=== PATIENT | female | born 1970 | race Caucasian/White ===

== ENCOUNTER → 2017-07-14 08:00 | Outpatient (CLI) | payer OTHER, SELFPAY ==
--- NOTE | 2017-07-14 08:00 | DT_ITS ---
This patient was seen during an EMR downtime July 11, 2017 - July 18, 2017. This patient may have a combination of paper and electronic documentation or all paper documentation. All documentation is viewable within the e-chart portion of [facility] for each patient visit.
== END ==
PROVIDERS: Family Provider Family Medicine; PCP Family Medicine; Visit Provider Family Medicine
DX: R69 Illness, unspecified (principal)
CPT/HCPCS: 84443

== ENCOUNTER → 2021-12-15 | Outpatient (CLI) | payer OTHER, SELFPAY ==
[2021-12-15 16:10] LABS: Absolute Lymphocyte Count 2.75 X10^3/uL (0.83-4.51); Absolute Neutrophil Count 3.6 X10^3/uL (2.0-7.7); Basophil# 0.04 X10^3/uL; Basophil% 0.6 % (0-1); Eosinophil# 0.11 X10^3/uL; Eosinophils% 1.6 % (0-5); Hematocrit 39.5 % (37-47); Lymphocyte # 2.75 X10^3/ul (0.83-4.51); Lymphocyte % 38.8 % (19-41); Mean Corp Hgb Conc 32.9 g/dL (32-36); Mean Corpuscular Volume 94.3 fL (81-99); Mean Platelet Vol. 9.8 fl (6.2-12.0); Monocyte# 0.56 X10^3/uL; Monocyte% 7.9 % (0-10); NRBC Flagged by Analyzer 0 % (0-5); Neutrophil % 50.8 % (47-70); Platelet Count 409 K/mm3 (150-450); RBC Distribution Width CV 12.7 % (11.6-14.6); RBC Distribution Width SD 44.1 fl (35.1-43.9); Red Blood Count 4.19 M/mm3 (4.2-5.4); White Blood Count 7.1 K/mm3 (4.4-11.0)
[2021-12-15 16:21] LABS: Erythrocyte Sedimentation Rate 6 mm/hr (0-30)
[2021-12-15 17:30] LABS: ALB/GLOB Ratio 1.1 RATIO (0.9-2.4); AST(SGOT) 18 U/L (15-37); Alanine Aminotransfer ALT/SGPT 31 U/L (13-56); Albumin, Serum 4.3 g/dL (3.2-5.0); Alkaline Phosphatase 70 U/L (45-117); Anion Gap 7 (5-15); BUN 7 mg/dL (7-18); CRP < 2.90 mg/L (0.0-3.0); Calcium,Total 9.4 mg/dL (8.5-10.1); Chloride 106 mmol/L (98-107); Creatinine, Serum 0.64 mg/dL (0.55-1.02); EST Glomerular Filtration Rate 103 mL/min (>60); Est Glom Filt Rate - Afr Amer 125 mL/min (>60); Globulin 3.8 g/dL (2.2-4.2); Glucose 89 mg/dL (74-106); LDH 173 U/L (84-246); Potassium 3.5 mmol/L (3.5-5.1); Protein, Total 8.1 g/dL (6.4-8.2); Sodium Level 141 mmol/L (136-145)
[2021-12-17 12:08] LABS: Anti-Centromere B Ab <0.2 AI (0.0-0.9); Anti-Chromatin <0.2 AI (0.0-0.9); Anti-Jo <0.2 AI (0.0-0.9); Anti-Scleroderma-70 AB <0.2 AI (0.0-0.9); RNP Ab 0.5 AI (0.0-0.9); SJOGREN'S Anti-SS-A test < 0.2 AI (0.0-0.9); SJOGREN'S Anti-SS-B test < 0.2 AI (0.0-0.9); Smith Ab <0.2 AI (0.0-0.9)
[2021-12-17 16:09] LABS: Endomysial Antibody IgA Negative (Negative)
[2021-12-18 15:07] LABS: Anti-dsDNA Ab <1 IU/mL (0-9)
[2021-12-18 15:10] LABS: Immunoglobulin A 104 mg/dL (87-352); t-Transglutaminase IgA <2 U/mL (0-3)
[2021-12-23 11:09] LABS: Albumin 4.1 g/dL (2.9-4.4); Alpha-1-Globulins 0.3 g/dL (0.0-0.4); Alpha-2-Globulins 0.9 g/dL (0.4-1.0); Cytoplasmic Ab (C-ANCA) <1:20 titer (Neg:<1:20); Gamma Globulin 1.2 g/dL (0.4-1.8); Immunoglobulin A 103 mg/dL (87-352); Immunoglobulin E 18 IU/mL (6-495); Immunoglobulin G 1082 mg/dL (586-1602); Immunoglobulin M 126 mg/dL (26-217); PROEL- TOTAL PROTEIN 7.5 g/dL (6.0-8.5)
[2021-12-23 16:31] LABS: Perinuclear Ab (P-ANCA) <1:20 titer (Neg:<1:20)
== END | disposition home or self-care (01) ==
LOC: LAB 15:01
PROVIDERS: Referring Provider Nurse Practitioner Adult Health; Visit Provider Nurse Practitioner Adult Health
DX: R10.9 Unspecified abdominal pain (principal); R19.7 Diarrhea, unspecified
CPT/HCPCS: 36415; 80053; 82784; 82785; 83516; 83615; 84165; 85025; 85652; 86140; 86225; 86235; 86255; 86256; 86334

== ENCOUNTER → 2021-12-18 | Outpatient (CLI) | payer OTHER, SELFPAY ==
[2021-12-22 13:39] LABS: Calprotectin, Stool <16 ug/g (0-120); Fats, Neutral Increased (.); Fats, Total Increased (.)
[2021-12-22 15:10] LABS: Pancreatic Elastase, Fecal 417 (>200)
== END | disposition home or self-care (01) ==
LOC: LABSPEC 10:49
PROVIDERS: Referring Provider Nurse Practitioner Adult Health; Visit Provider Nurse Practitioner Adult Health
DX: R10.9 Unspecified abdominal pain (principal); R19.7 Diarrhea, unspecified; K58.9 Irritable bowel syndrome, unspecified
CPT/HCPCS: 82653; 82705; 83630; 83993; 87177; 87209; 87493; 87506

== ENCOUNTER 2021-12-24 12:48 | Outpatient (CLI) | payer OTHER, SELFPAY ==
--- NOTE | 2021-12-24 12:50 | CT_ITS ---
STUDY: CT ABDOMEN AND PELVIS WITH CONTRAST REASON FOR EXAM: Female, 51 years old. Diarrhea, weight loss, abd pain -- oral and iv RADIATION DOSAGE (If Supplied By Facility): CTDIvol = ( 10.46 ) mGy, DLP = ( 500.58 ) mGycm TECHNIQUE: Transaxial images were obtained from the dome of the diaphragm to the symphysis pubis with oral contrast. Oral and amp;amp; IV Readi-CAT and amp;amp; 100mL Isovue-300 was administered. Sagittal and coronal images were reconstructed. Individualized dose optimization techniques were used for this CT. COMPARISON: None. FINDINGS: 2 mm noncalcified nodule in the anterior aspect of the right middle lobe as seen on axial image #5. Minimal scarring at the left lung base. The visualized portions of the heart are within normal limits. Normal liver. Normal gallbladder and extrahepatic biliary system. Normal spleen. Normal pancreas. Normal bilateral adrenal glands. Normal right kidney. Normal left kidney. Normal visualized stomach. Normal small intestine. Normal colon. The appendix is visualized and appears normal. Normal abdominal aorta. Normal inferior vena cava. Normal retroperitoneum. Normal urinary bladder. Fibroid uterus. There is evidence of bilateral tubal ligation clips. There is a small umbilical hernia containing fat. There are diffuse degenerative changes of the visualized lumbar spine. CT/Abdomen/Pelvis WITH Contrast IMPRESSION: No acute abnormality is seen. Electronically Signed: Yoseph Polk MD at 13:25 EST ,
[2021-12-24 14:22] LABS: GGTP 22 U/L (5-55)
[2021-12-27 07:52] LABS: Anti-Mitochondrial AB <20.0 Units (0.0-20.0); Anti-Smooth Muscle ABS 12 Units (0-19)
== END 2021-12-24 23:59 | disposition home or self-care (01) ==
PROVIDERS: Referring Provider Nurse Practitioner Adult Health; Visit Provider Nurse Practitioner Adult Health
DX: R10.9 Unspecified abdominal pain (principal); R19.7 Diarrhea, unspecified; K90.9 Intestinal malabsorption, unspecified
CPT/HCPCS: 36415; 74177; 82977; 83516; Q9967

== ENCOUNTER 2021-12-26 08:25 | Outpatient (CLI) | payer OTHER, SELFPAY ==
[2021-12-28 17:39] LABS: Giardia Lamblia, Stool EIA Negative (Negative)
== END 2021-12-26 23:59 | disposition home or self-care (01) ==
LOC: LABSPEC 08:27
PROVIDERS: Referring Provider Nurse Practitioner Adult Health; Visit Provider Nurse Practitioner Adult Health
DX: R19.7 Diarrhea, unspecified (principal); K90.9 Intestinal malabsorption, unspecified
CPT/HCPCS: 87329

== ENCOUNTER 2022-04-06 05:38 | Day surgery (SDC) | payer OTHER, SELFPAY ==
--- NOTE | 2022-04-06 | GASB_PTH ---
PATIENT: KAT BROWER LOC: EN U#:[id number] AGE/SX: 51/F ROOM: RE04/06/[address]: Dr. Kobi Stark DO : 1970 BED: DIS: 04/06/2022 SPEC #: [id number] RECD: 04/06/22 13:31 STATUS: EFRAÍN CHANDNI #: [id number] OCTAVIANO: 04/06/22 00:[address]: Kobi Stark DEPT: SURGICAL PATHOLOGY RECD BY: Froilan Carl ENTERED: 04/06/22 13:32 SP TYPE: Gastric Bx OTHR DR: TERESA JUÁREZ MD Tissues: A - Duodenum, NOS B - Gastric mucous membrane C - Gastric mucous membrane D - Esophageal mucous membrane E - Ileum, NOS F - COLON BIOPSY Procedures: Special Stain Group II Surgery Specimen Level IV Alcian Blue/PAS (control) HEADER OPERATION: Colonoscopy, EGD ([facility] [place]), biopsy PRE-OP DIAGNOSIS: Diarrhea, abdominal pain TISSUE SUBMITTED: A - Duodenum biopsy, B - Gastric antrum biopsy for histo and H. pylori, C - Gastric body biopsy, D - Distal esophagus biopsy, E - Terminal ileum biopsy, F - Random colonic biopsy MICROSCOPIC DIAGNOSIS A. Duodenum, biopsy: Fragments of duodenal mucosa, no pathologic diagnosis. B. Gastric antrum, biopsy: Mild gastritis. See microscopic description and comment. C. Gastric body, biopsy: Mild gastritis. See microscopic description. D. Distal esophagus, biopsy: Fragments of gastroesophageal mucosa with mild chronic inflammation. Intestinal metaplasia (goblet cell metaplasia) is not identified. See comment. E. Terminal ileum, biopsy: Fragments of small intestinal mucosa, no pathologic diagnosis. F. Colon, random biopsy: Fragments of colonic mucosa, no pathologic diagnosis. SJ:reina 04/07/2022 COMMENT B. The results of immunohistochemistry for Helicobacter pylori will be reported separately ([id number]). D. Alcian blue/PAS stain with matched control is used in the evaluation of the specimen. MICROSCOPIC DESCRIPTION Slides are reviewed. B & C. The specimen shows fragments of gastric mucosa with chronic inflammatory cell infiltrates in the lamina propria consisting of lymphocytes and plasma cells, consistent with mild chronic gastritis. GROSS DESCRIPTION A - Received in fixative is one container labeled with the patient's name and designated duodenum biopsy. The specimen consists of multiple irregular fragments of light wilde soft tissue that in aggregate measure 1.0 x 0.3 x 0.1 cm. The specimen is totally submitted in one cassette. B - Received in fixative is one container labeled with the patient's name and designated gastric antrum biopsy. The specimen consists of two irregular fragments of light wilde soft tissue that in aggregate measure 0.6 x 0.3 x 0.1 cm. The specimen is totally submitted in one cassette. C - Received in fixative is one container labeled with the patient's name and designated gastric body biopsy. The specimen consists of two irregular fragments of light wilde soft tissue that in aggregate measure 0.6 x 0.3 x 0.1 cm. The specimen is totally submitted in one cassette. D - Received in fixative is one container labeled with the patient's name and designated distal esophagus biopsy. The specimen consists of multiple irregular fragments of light wilde soft tissue that in aggregate measure 1.0 x 0.3 x 0.1 cm. The specimen is totally submitted in one cassette. E - Received in fixative is one container labeled with the patient's name and designated terminal ileum biopsy. The specimen consists of multiple irregular fragments of light wilde soft tissue that in aggregate measure 1.0 x 0.5 x 0.1 cm. The specimen is totally submitted in one cassette. F - Received in fixative is one container labeled with the patient's name and designated random colonic biopsy. The specimen consists of multiple irregular fragments of light wilde soft tissue that in aggregate measure 1.0 x 0.5 x 0.1 cm. The specimen is totally submitted in one cassette. / MELISSA:reina 04/06/2022 TC:3 CPT: 69361 x6, 59831
[2022-04-06 06:02] VITALS: BP 113/60; PULSE 54; RESP 12; TEMP 36.7; O2SAT 96; BMI 23.7
[2022-04-06] MEDS: Lactated Ringers 1,000 ML 15 ML IV (06:09)
--- NOTE | 2022-04-06 06:30 | IMM_PTH ---
PATIENT: KAT BROWER LOC: EN U#:[id number] AGE/SX: 51/F ROOM: RE04/06/[address]: Dr. Kobi Stark DO : 1970 BED: DIS: 04/06/2022 SPEC #: [id number] RECD: 04/06/22 13:55 STATUS: EFRAÍN REAries #: [id number] OCTAVIANO: 04/06/22 06:[address]: Kobi Stark DEPT: IMMUNOHISTOCHEMISTRY RECD BY: Janie Hill ENTERED: 04/06/22 13:55 SP TYPE: IMMUNO OTHR DR: TERESA JUÁREZ MD Tissues: B - Stomach, NOS Procedures: H Pylori (initial) PHYSICIAN & INSTITUTION [place] [id number] SPECIMEN INFORMATION: Tissue Source: B ? Gastric antrum Clinical Info: Diarrhea, abdominal pain Specimen Number: [id number] CPT code: 44198 METHODOLOGY: Deparaffinized sections of prefer/formalin-fixed tissue or PAP/DQ stained slides are incubated with monoclonal/polyclonal antibodies/oligonucleotide probes. Localization is made via biotin free immunoperoxidase method. Appropriate controls are performed and reacted as expected. Results on target cell population are indicated in the following table: RESULTS: ANTIBODY / CLONE RESULT Block B H Pylori (polyclonal) negative These tests were developed and their performance characteristics determined by [facility]. They may not have been cleared or approved by the U.S. Food and Drug Administration. The FDA has determined that such clearance or approval is not necessary. The above immunohistochemical/dualISH markers are ordered and reviewed by the Pathologist. INTERPRETATION: B. Gastric antrum, biopsy: Negative for Helicobacter pylori organisms. SJ:reina 04/07/2022
--- NOTE | 2022-04-06 06:33 | HP.PCM_ITS ---
History and Physical Date of Admission: 04/06/22 51 F who presents to the office today for consultation for diarrhea. She reports loose stools, can be up to 7 times a day. Can be watery or goo or fluffy. No mucus, no blood, other than streaks of blood from wiping a couple of times. Started Summer 2021. [place] a hardness in epigastrium, then there was noise in the abd, then the diarrhea began. Her normal had been BM only 2x per week. Diarrhea can be urgent. No nocturnal diarrhea recently, but before this began she had occas episodes of waking in night with sweating, nausea, diarrhea; that occurred a few times earlier in 2021. Not currently taking anything for the diarrhea. Only took dicyclomine once. Rare random pains in the lower abd. Rare cramping. She can't tolerate milk. She was treated with antibiotics (azithromycin, flagyl), afterwards she had better control of bowels, BMs not quite as urgent. Summer 2021: TSH 1.34, normal liver enzymes, ESR 9, C. difficile negative. Rare heartburn, was put on omeprazole earlier this year but no longer taking it. No nausea, vomiting, early satiety, dysphagia. Lost about 10 lbs this year, not intentional but did limit intake due to concern for diarrhea. Sometimes had dumping, but diarrhea not always related to eating. Getting muscles fluttering especially at night. Gets intermittent heart palpitations, has been told the right side of heart doesn't work right, no recent ECG, no CP. No prior colonoscopy, has had normal Cologuard Sister had Crohn's as well as [employer] as [employer] Ex[employer] Const General: cooperative and healthy appearing Nutritional Appearance: average body habitus Orientation: alert, awake and oriented x3 HENMT Head: normal to inspection Eyes General: appearance normal, both eyes and all related structures Resp Effort & Inspection: normal respiratory effort GI Inspection: normal to inspection Palpation: soft, no hepatosplenomegaly, no masses and tender in the RLQ Skin General: no rashes or lesions noted Neuro Gait: normal gait Quality Reporting Tobacco Screening ([facility]) Smoking Status: Current every day smoker Assessment and Plan Assessment and Plan (1) Diarrhea: ?Status:?Acute ?Plan: 51 yr old female with change in bowels, >3mos diarrhea, unintentional weight loss, abd pain. She has dicyclomine, can try it bid rather than prn. Consider cholestyramine or colestipol. Blood and stool tests CT abd pel w/ oral and iv contrast EGD and colonoscopy, f/u 2 wks later (2) Abdominal pain: ?Status:?Acute ?Plan: as above ? ? ? Orders: Orders Abdomen/Pelvis WITH Contrast Today R10.9 - Unspecified abdominal pain, R19.7 - Diarrhea, unspecified ? Comprehensive Metabolic Profil Today R10.9 - Unspecified abdominal pain, R19.7 - Diarrhea, unspecified ? CRP Today R10.9 - Unspecified abdominal pain, R19.7 - Diarrhea, unspecified ? LDH Today R10.9 - Unspecified abdominal pain, R19.7 - Diarrhea, unspecified ? CBC W/Diff, Automated Today R10.9 - Unspecified abdominal pain, R19.7 - Diarrhea, unspecified ? Erythrocyte Sed Rate Today R10.9 - Unspecified abdominal pain, R19.7 - Diarrhea, unspecified ? MODESTA Comprehensive Panel Today R10.9 - Unspecified abdominal pain, R19.7 - Diarrhea, unspecified ? Calprotectin, Stool Today R10.9 - Unspecified abdominal pain, R19.7 - Diarrhea, unspecified ? Fecal Fat, Qualitative Today R10.9 - Unspecified abdominal pain, R19.7 - Diarrhea, unspecified ? Ova and Parasites 8623 Today K58.9 - Irritable bowel syndrome without diarrhea, R10.9 - Unspecified abdominal pain, R19.7 - Diarrhea, unspecified ? CDIFF (PCR) Today R10.9 - Unspecified abdominal pain, R19.7 - Diarrhea, unspecified ? ENTERIC PATHOGEN PANEL STOOL Today K58.9 - Irritable bowel syndrome without diarrhea, R10.9 - Unspecified abdominal pain, R19.7 - Diarrhea, unspecified ? Stool Lactoferrin/WBC Today K58.9 - Irritable bowel syndrome without diarrhea, R10.9 - Unspecified abdominal pain, R19.7 - Diarrhea, unspecified ? ANCA TodayK R10.9 - Unspecified abdominal pain, R19.7 - Diarrhea, unspecified ? Celiac Disease Profile Today R10.9 - Unspecified abdominal pain, R19.7 - Diarrhea, unspecified ? Immunoglobulins G/A/M/E Today R10.9 - Unspecified abdominal pain, R19.7 - Diarrhea, unspecified ? SCOTTIE + Protein Elect, Serum Today R10.9 - Unspecified abdominal pain, R19.7 - Diarrhea, unspecified ? Pancreatic Elastase, Fecal Today R10.9 - Unspecified abdominal pain, R19.7 - Diarrhea, unspecified ? I have examined the patient and the H&P has been reviewed. There are no clinical changes since date of exam.
[2022-04-06 07:07] VITALS: BP 113/60; BP 90/52; PULSE 62; RESP 14; TEMP 36.9; O2SAT 99
[2022-04-06 07:10] VITALS: BP 113/60; BP 81/54; PULSE 68; RESP 14; O2SAT 100
--- NOTE | 2022-04-06 07:14 | OP.EGD_ITS ---
Patient Name: Britt Arora Procedure Date: 04/06/2022 6:10 AM Date of : 1970 Age: 51 Procedure: Upper GI endoscopy Indications: Epigastric abdominal pain Providers: Kobi Stark DO Medicines: Monitored Anesthesia Care Patient Profile: This is a 51 year old female. Refer to note in patient chart for documentation of history and physical. Patient has symptoms of chronic abdominal distention, chronic epigastric abdominal pain and chronic dyspepsia. Complications: No immediate complications. Procedure: Pre-Anesthesia Assessment: - Prior to the procedure, a History and Physical was performed, and patient medications and allergies were reviewed. The risks and benefits of the procedure and the sedation options and risks were discussed with the patient. All questions were answered and informed consent was obtained. Patient identification and proposed procedure were verified by the physician. Mental Status Examination: normal. Prophylactic Antibiotics: The patient does not require prophylactic antibiotics. Prior Anticoagulants: The patient has taken no previous anticoagulant or antiplatelet agents. ASA Grade Assessment: II - A patient with mild systemic disease. After reviewing the risks and benefits, the patient was deemed in satisfactory condition to undergo the procedure. The anesthesia plan was to use monitored anesthesia care (MAC). Immediately prior to administration of medications, the patient was re-assessed for adequacy to receive sedatives. The heart rate, respiratory rate, oxygen saturations, blood pressure, adequacy of pulmonary ventilation, and response to care were monitored throughout the procedure. The physical status of the patient was re-assessed after the procedure. After obtaining informed consent, the endoscope was passed under direct vision. Throughout the procedure, the patient's blood pressure, pulse, and oxygen saturations were monitored continuously. The colonoscope was introduced through the mouth, and advanced to the second part of duodenum. The upper GI endoscopy was accomplished without difficulty. The patient tolerated the procedure well. Scope In: 6:40:50 AM Scope Out: 6:47:29 AM Total Procedure Duration Time 0 hours 6 minutes 39 seconds Findings: The Z-line was irregular and was found 38 cm from the incisors. Biopsies were taken with a cold forceps for histology. Verification of patient identification for the specimen was done. Estimated blood loss was minimal. Patchy mildly erythematous mucosa without bleeding was found in the gastric antrum. Biopsies were taken with a cold forceps for histology. Verification of patient identification for the specimen was done. Estimated blood loss was minimal. Patchy mildly erythematous mucosa without active bleeding and with no stigmata of bleeding was found in the duodenal bulb, in the first portion of the duodenum and in the second portion of the duodenum. Biopsies were taken with a cold forceps for histology. Verification of patient identification for the specimen was done. Estimated blood loss was minimal. Impression: - Z-line irregular, 38 cm from the incisors. Biopsied. - Erythematous mucosa in the antrum. Biopsied. - Erythematous duodenopathy. Biopsied. Recommendation: - Discharge patient to home. - Resume previous diet. - Continue present medications. - Await pathology results. Procedure Code(s): --- Professional --- 38363, Esophagogastroduodenoscopy, flexible, transoral; with biopsy, single or multiple CPT copyright 2017 [employer]. All rights reserved. The codes documented in this report are preliminary and upon product safety lead review may be revised to meet current compliance requirements. Kobi Stark DO 04/06/2022 7:13:06 AM This report has been signed electronically. Number of Addenda: 0 Note Initiated On: 04/06/2022 6:10 AM
--- NOTE | 2022-04-06 07:14 | OP.CCLET_ITS ---
04/06/2022 Juanita Sharma Md Re : Upper GI endoscopy procedure for Britt Arora Dear Zachary This procedure was performed on Wednesday, April 06, 2022. My impressions and recommendations are as follows: Impressions : - Z-line irregular, 38 cm from the incisors. Biopsied. - Erythematous mucosa in the antrum. Biopsied. - Erythematous duodenopathy. Biopsied. Recommendations : - Discharge patient to home. - Resume previous diet. - Continue present medications. - Await pathology results. My findings are described in the full procedure note, which is enclosed. If I can be of further assistance, please feel free to contact me at . Sincerely, Kobi Stark, 04/06/2022 7:13:06 AM This report has been signed electronically.
[2022-04-06 07:15] VITALS: BP 113/60; BP 94/52; PULSE 65; RESP 14; O2SAT 100
--- NOTE | 2022-04-06 07:16 | OP.CCLET_ITS ---
04/06/2022 Juanita Sharma Md Re : Colonoscopy procedure for Britt Arora Dear [place]ary This procedure was performed on Wednesday, April 06, 2022. My impressions and recommendations are as follows: Impressions : - Congested mucosa in the sigmoid colon and in the transverse colon. Biopsied. - Congested mucosa in the terminal ileum. Biopsied. Recommendations : - Discharge patient to home. - Resume previous diet. - Continue present medications. - Await pathology results. - Repeat colonoscopy in 10 years for screening purposes. My findings are described in the full procedure note, which is enclosed. If I can be of further assistance, please feel free to contact me at . Sincerely, Kobi Stark, 04/06/2022 7:15:58 AM This report has been signed electronically.
--- NOTE | 2022-04-06 07:16 | OP.COLON_ITS ---
Patient Name: Britt Arroa Procedure Date: 04/06/2022 6:47 AM Date of : 1970 Age: 51 Procedure: Colonoscopy Indications: Clinically significant diarrhea of unexplained origin Providers: Kobi Stark DO Medicines: Monitored Anesthesia Care Patient Profile: This is a 51 year old female. Refer to note in patient chart for documentation of history and physical. Patient has symptoms of chronic abdominal distention, chronic epigastric abdominal pain and chronic dyspepsia. Last Colonoscopy: more than 10 years ago. Complications: No immediate complications. Procedure: Pre-Anesthesia Assessment: - Prior to the procedure, a History and Physical was performed, and patient medications and allergies were reviewed. The risks and benefits of the procedure and the sedation options and risks were discussed with the patient. All questions were answered and informed consent was obtained. Patient identification and proposed procedure were verified by the physician. Mental Status Examination: normal. Prophylactic Antibiotics: The patient does not require prophylactic antibiotics. Prior Anticoagulants: The patient has taken no previous anticoagulant or antiplatelet agents. ASA Grade Assessment: II - A patient with mild systemic disease. After reviewing the risks and benefits, the patient was deemed in satisfactory condition to undergo the procedure. The anesthesia plan was to use monitored anesthesia care (MAC). Immediately prior to administration of medications, the patient was re-assessed for adequacy to receive sedatives. The heart rate, respiratory rate, oxygen saturations, blood pressure, adequacy of pulmonary ventilation, and response to care were monitored throughout the procedure. The physical status of the patient was re-assessed after the procedure. After I obtained informed consent, the scope was passed under direct vision. Throughout the procedure, the patient's blood pressure, pulse, and oxygen saturations were monitored continuously. The colonoscope was introduced through the anus and advanced to the terminal ileum. The colonoscopy was performed without difficulty. The patient tolerated the procedure well. The quality of the bowel preparation was good. Scope In: 6:49:53 AM Scope Withdrawal Time 0 hours 10 minutes 6 seconds Scope Out: 7:04:58 AM Total Procedure Duration Time 0 hours 15 minutes 5 seconds Findings: The perianal and digital rectal examinations were normal. An area of mildly congested mucosa was found in the sigmoid colon and in the transverse colon. Biopsies were taken with a cold forceps for histology. Verification of patient identification for the specimen was done. Estimated blood loss was minimal. A patchy area of the terminal ileum was congested. Biopsies were taken with a cold forceps for histology. Verification of patient identification for the specimen was done. Estimated blood loss was minimal. Impression: - Congested mucosa in the sigmoid colon and in the transverse colon. Biopsied. - Congested mucosa in the terminal ileum. Biopsied. Recommendation: - Discharge patient to home. - Resume previous diet. - Continue present medications. - Await pathology results. - Repeat colonoscopy in 10 years for screening purposes. Procedure Code(s): --- Professional --- 05371, Colonoscopy, flexible; with biopsy, single or multiple CPT copyright 2017 [employer]. All rights reserved. The codes documented in this report are preliminary and upon java programmer review may be revised to meet current compliance requirements. Kobi Stark DO 04/06/2022 7:15:58 AM This report has been signed electronically. Number of Addenda: 0 Note Initiated On: 04/06/2022 6:47 AM
[2022-04-06 07:22] VITALS: BP 113/60; BP 95/61; PULSE 62; RESP 16; TEMP 36.7; O2SAT 99
[2022-04-06 07:39] VITALS: BP 113/60
== END 2022-04-06 07:50 | disposition home or self-care (01) ==
LOC: EN 05:40 → AC 05:41
PROVIDERS: PCP Family Medicine; Referring Provider Family Medicine; Visit Provider Internal Medicine Gastroenterology
PROC: 0DJD8ZZ Inspection of Lower Intestinal Tract, Via Natural or Artificial Opening Endoscopic (ICD-10-PCS; CPT 45378; principal; 2022-04-06 06:25)
DX: K29.70 Gastritis, unspecified, without bleeding (principal); K31.89 Other diseases of stomach and duodenum; K63.89 Other specified diseases of intestine; F17.200 Nicotine dependence, unspecified, uncomplicated; E07.9 Disorder of thyroid, unspecified; Z79.899 Other long term (current) drug therapy
CPT/HCPCS: 45380; 43239; 88305; 88313; 88342; J7120; J2405

== ENCOUNTER → 2022-05-03 | Outpatient (CLI) | payer OTHER, SELFPAY ==
[2022-05-03 16:29] LABS: Lipase 134 U/L (73-393)
== END | disposition home or self-care (01) ==
LOC: LAB 15:36
PROVIDERS: PCP Family Medicine; Referring Provider Nurse Practitioner Adult Health; Visit Provider Nurse Practitioner Adult Health
DX: K90.9 Intestinal malabsorption, unspecified (principal)
CPT/HCPCS: 36415; 83690